=== PATIENT | female | born 1955 | race Caucasian/White ===

== ENCOUNTER 2023-10-23 07:24 | Inpatient (IN) | payer MEDICARE, BC ==
[~2023-10-23] VITALS: Ht 170.2 cm; Wt 67.7 kg
[2023-10-23] MEDS ORDERED: VANCOMYCIN 1 GM VIAL ONE (07:46)
[2023-10-23] MEDS ORDERED: dexaMETHasone SOD PHOSPHATE 2 ML ONE (07:46)
[2023-10-23] MEDS ORDERED: LIDOCAINE 2%-EPI 1:100,000 30 ML VIAL ONE (07:46)
[2023-10-23] MEDS ORDERED: SEVOFLURANE 250 ML BOTTLE IH ONE (09:39)
[2023-10-23] MEDS ORDERED: HYDROMORPHONE 1 MG/1 ML DISP.SYRIN ONE (12:05)
[2023-10-23] MEDS ORDERED: ACETAMINOPHEN 325 MG TABLET PO PRN (12:30)
[2023-10-23] MEDS ORDERED: LISI2.5T2 PO (12:52)
[2023-10-23] MEDS ORDERED: ROSU10TA29 PO (12:52)
[2023-10-23] MEDS ORDERED: ASPI-1420 PO (12:52)
[2023-10-23] MEDS ORDERED: PANT40TA49 PO (12:52)
[2023-10-23] MEDS ORDERED: IBUP-1957 PO (12:52)
[2023-10-23] MEDS: HYDROMORPHONE 1 MG/1 ML DISP.SYRIN IV PRN (15:50)
[2023-10-23] MEDS ORDERED: MAGNESIUM HYDROXIDE 30 ML UDC PO PRN (16:00)
[2023-10-23] MEDS ORDERED: Z GUARD REMEDY 4 OZ OINT TP PRN (16:00)
[2023-10-23] MEDS: ONDANSETRON HCL/PF 4 MG/2 ML VIAL IVP PRN (18:30)
[2023-10-23] MEDS: IV NS 0.9% 1,000 ML IV PRN (18:31)
[2023-10-23 20:06] VITALS: BP 110/70; TEMP 98.1; O2SAT 95
[2023-10-24 06:48] LABS: BASOPHILS % (AUTO) 0.1 % (0.0-2.0); HEMATOCRIT 33 % (33-45); HEMOGLOBIN 11.3 g/dL (11.5-14.8); LYMPHOCYTES # (AUTO) 1.3 K/uL (0.8-4.8); LYMPHOCYTES % (AUTO) 19.7 % (20.0-44.0); MEAN CORPUSCULAR HEMOGLOBIN 31 PG (26.0-33.0); MEAN CORPUSCULAR HGB CONC 35 g/dl (31.0-36.0); MEAN CORPUSCULAR VOLUME 91 fL (82-100); MONOCYTES # (AUTO) 0.5 K/uL (0.1-1.30); MONOCYTES % (AUTO) 7.9 % (2.0-12.0); NEUTROPHILS # (AUTO) 4.8 K/uL (1.8-8.9); NEUTROPHILS % (AUTO) 72.3 % (43.0-81.0); PLATELET COUNT (AUTO) 227 K/uL (150-450); RED CELL DISTRIBUTION WIDTH 13.3 % (11.5-15.0); WHITE BLOOD COUNT (AUTO) 6.6 K/uL (4.3-11.0)
[2023-10-24 07:19] LABS: CALCIUM, SERUM 8.3 mg/dL (8.5-10.1); CREATININE 0.7 mg/dL (0.6-1.3); MAGNESIUM 2.3 mg/dL (1.8-2.4); PHOSPHORUS 2.9 mg/dL (2.5-4.9); POTASSIUM 3.7 mmol/L (3.5-5.1)
[2023-10-24 07:30] VITALS: BP 105/52; TEMP 98.5; O2SAT 98
[2023-10-24] MEDS: PANTOPRAZOLE 40 MG TABLET.DR PO SCH (07:30)
[2023-10-24] MEDS ORDERED: ATORVASTATIN 40 MG TABLET PO SCH (15:59)
== END 2023-10-24 14:38 | disposition home or self-care (01) | DRG 517 ==
LOC: DS 07:24 → MED 12:02
PROVIDERS: ADMIT Nurse Practitioner Family; ATTEND Nurse Practitioner Family
PROC: 0NUV07Z Supplement Left Mandible with Autologous Tissue Substitute, Open Approach (ICD-10-PCS; principal; 2023-10-23)
PROC: 0NUT07Z Supplement Right Mandible with Autologous Tissue Substitute, Open Approach (ICD-10-PCS; 2023-10-23)
PROC: 0NST04Z Reposition Right Mandible with Internal Fixation Device, Open Approach (ICD-10-PCS; 2023-10-23)
PROC: 0NSV04Z Reposition Left Mandible with Internal Fixation Device, Open Approach (ICD-10-PCS; 2023-10-23)
PROC: 0NBV0ZX Excision of Left Mandible, Open Approach, Diagnostic (ICD-10-PCS; 2023-10-23)
PROC: 0NBT0ZX Excision of Right Mandible, Open Approach, Diagnostic (ICD-10-PCS; 2023-10-23)
DX: S02.69XK Fracture of mandible of other specified site, subsequent encounter for fracture with nonunion (principal); M27.2 Inflammatory conditions of jaws; X58.XXXD Exposure to other specified factors, subsequent encounter; E78.5 Hyperlipidemia, unspecified; I34.0 Nonrheumatic mitral (valve) insufficiency; I10 Essential (primary) hypertension; Z90.710 Acquired absence of both cervix and uterus; Z90.49 Acquired absence of other specified parts of digestive tract; Z98.890 Other specified postprocedural states; Z79.82 Long term (current) use of aspirin; Z79.899 Other long term (current) drug therapy; D16.5 Benign neoplasm of lower jaw bone
CPT/HCPCS: 36415; 80048-TC; 83735-TC; 84100-TC; 85025-TC; 88305-TC; 88311-TC; 88312-TC; A4223; C1713; G0378; J1100; J1170; J2405; J2704; J3370; J3490; J7030

== ENCOUNTER 2024-02-27 07:21 | Inpatient (IN) | payer MEDICARE, BC ==
[~2024-02-27] VITALS: Ht 170.2 cm; Wt 66.2 kg
[~2024-02-27 07:21] MED LIST: ASPI-1420 PO; IBUP-1957 PO; LISI2.5T2 PO; PANT40TA49 PO; ROSU10TA29 PO
[2024-02-27] MEDS ORDERED: LIDOCAINE 2%-EPI 1:100,000 30 ML VIAL ONE (08:46)
[2024-02-27] MEDS ORDERED: dexaMETHasone SOD PHOSPHATE 2 ML ONE (08:47)
[2024-02-27] MEDS ORDERED: VANCOMYCIN 1 GM VIAL ONE (08:47)
[2024-02-27] MEDS ORDERED: ALBUTEROL SULFATE 8 GM HFA.AER.AD ONE (08:47)
[2024-02-27] MEDS ORDERED: OXYMETAZOLINE HCL NASAL SPRAY 30 ML BOTTLE NS ONE (09:03)
[2024-02-27] MEDS ORDERED: HYDROMORPHONE 1 MG/1 ML DISP.SYRIN IV PRN (11:00)
[2024-02-27] MEDS ORDERED: ONDANSETRON HCL/PF 4 MG/2 ML VIAL IV PRN (11:00)
[2024-02-27] MEDS ORDERED: ACETAMINOPHEN 325 MG TABLET PO PRN (11:30)
[2024-02-27 13:30] VITALS: BP 116/66; TEMP 98; O2SAT 96
[2024-02-27 16:00] VITALS: BP 89/66; TEMP 97.7; O2SAT 96
[2024-02-27] MEDS ORDERED: LISINOPRIL (5MG) 5 MG TABLET PO PRN (17:30)
[2024-02-27] MEDS: IV NS 0.9% 1,000 ML IV PRN (18:49)
[2024-02-27] MEDS: ATORVASTATIN 40 MG TABLET PO SCH (20:00)
[2024-02-27] MEDS: VANCOMYCIN 1 GM in IV D5W 250ml IV SCH (20:31)
[2024-02-28 07:03] LABS: BASOPHILS % (AUTO) 0.3 % (0.0-2.0); EOSINOPHILS % (AUTO) 0.1 % (0.0-6.0); HEMATOCRIT 34 % (33-45); HEMOGLOBIN 11.4 g/dL (11.5-14.8); LYMPHOCYTES # (AUTO) 2.1 K/uL (0.8-4.8); LYMPHOCYTES % (AUTO) 23.4 % (20.0-44.0); MEAN CORPUSCULAR HEMOGLOBIN 31 PG (26.0-33.0); MEAN CORPUSCULAR HGB CONC 34 g/dl (31.0-36.0); MEAN CORPUSCULAR VOLUME 90 fL (82-100); MONOCYTES # (AUTO) 0.6 K/uL (0.1-1.30); MONOCYTES % (AUTO) 6.9 % (2.0-12.0); NEUTROPHILS # (AUTO) 6.3 K/uL (1.8-8.9); NEUTROPHILS % (AUTO) 69.3 % (43.0-81.0); PLATELET COUNT (AUTO) 265 K/uL (150-450); RED BLOOD CELL COUNT(AUTO) 3.72 MIL/uL (4.0-5.2); RED CELL DISTRIBUTION WIDTH 13.8 % (11.5-15.0); WHITE BLOOD COUNT (AUTO) 9.1 K/uL (4.3-11.0)
[2024-02-28 07:08] LABS: ALBUMIN 3.2 g/dL (3.4-5.0); BILIRUBIN,TOTAL 0.3 mg/dL (0.2-1.0); CALCIUM, SERUM 8.6 mg/dL (8.5-10.1); CREATININE 0.5 mg/dL (0.6-1.3); MAGNESIUM 2.3 mg/dL (1.8-2.4); PHOSPHORUS 3.2 mg/dL (2.5-4.9); POTASSIUM 3.7 mmol/L (3.5-5.1); TOTAL PROTEIN, SERUM 6.7 g/dL (6.4-8.2)
== END 2024-02-28 10:45 | disposition home or self-care (01) | DRG 908 ==
LOC: DS 07:21 → MED 07:23
PROVIDERS: ADMIT Internal Medicine; ATTEND Internal Medicine
PROC: 0NPW04Z Removal of Internal Fixation Device from Facial Bone, Open Approach (ICD-10-PCS; principal; 2024-02-27)
PROC: 0N5V0ZZ Destruction of Left Mandible, Open Approach (ICD-10-PCS; 2024-02-27)
PROC: 0N5T0ZZ Destruction of Right Mandible, Open Approach (ICD-10-PCS; 2024-02-27)
PROC: 0NHV04Z Insertion of Internal Fixation Device into Left Mandible, Open Approach (ICD-10-PCS; 2024-02-27)
DX: T86.831 Bone graft failure (principal); S02.40DK Maxillary fracture, left side, subsequent encounter for fracture with nonunion; T84.69XA Infection and inflammatory reaction due to internal fixation device of other site, initial encounter; Y92.009 Unspecified place in unspecified non-institutional (private) residence as the place of occurrence of the external cause; Y83.2 Surgical operation with anastomosis, bypass or graft as the cause of abnormal reaction of the patient, or of later complication, without mention of misadventure at the time of the procedure; Z90.710 Acquired absence of both cervix and uterus; Z90.49 Acquired absence of other specified parts of digestive tract; E78.5 Hyperlipidemia, unspecified; I10 Essential (primary) hypertension; X58.XXXD Exposure to other specified factors, subsequent encounter
CPT/HCPCS: 36415; 80053-TC; 83735-TC; 84100-TC; 85025-TC; 88300-TC; 88305-TC; 88311-TC; 88312-TC; G0378; J0461; J0690; J1100; J2704; J3370; J3490; J7030; J7060